=== PATIENT | male | born 1965 | race Caucasian/White ===

== ENCOUNTER 2018-07-07 13:44 | Emergency (ER) | payer OTHER, BC ==
[2018-07-07] MEDS: ACETAMINOPHEN TAB 650MG DOSE (2X325MG) PO (14:15)
== END 2018-07-07 15:46 | disposition home or self-care (01) ==
LOC: M ED 13:44
DX: T14.8XXA Other injury of unspecified body region, initial encounter (principal); Y04.8XXA Assault by other bodily force, initial encounter; Y92.59 Other trade areas as the place of occurrence of the external cause; Y99.0 Civilian activity done for income or pay; M25.561 Pain in right knee; M25.562 Pain in left knee; M25.531 Pain in right wrist; M25.532 Pain in left wrist; M25.511 Pain in right shoulder; M25.512 Pain in left shoulder; M51.9 Unspecified thoracic, thoracolumbar and lumbosacral intervertebral disc disorder; Z88.0 Allergy status to penicillin; Z88.1 Allergy status to other antibiotic agents
CPT/HCPCS: 73030

== ENCOUNTER → 2024-02-16 | Outpatient (REF) | LOC: M PLAIMG 14:29 | PROVIDERS: ATTEND Internal Medicine | DX: M54.50 Low back pain, unspecified (principal); M25.511 Pain in right shoulder ==